=== PATIENT | male | born 2005 | race Caucasian/White ===

== ENCOUNTER 2024-07-09 15:54 | Inpatient (IN) | payer OTHER ==
[~2024-07-09] VITALS: Ht 172.7 cm; Wt 89.0 kg
[2024-07-09 16:49] LABS: HEMATOCRIT 48.5 % (42.0-52.0); HEMOGLOBIN 16.5 g/dl (13.5-17.5); MEAN CORPUSCULAR HEMOGLOBIN 28.2 pg (27.0-33.0); MEAN CORPUSCULAR VOLUME 82.9 fl (80.0-96.0); PLATELET COUNT, AUTOMATED 269 10^3/uL (150-450); RED BLOOD COUNT 5.85 10^6/uL (4.30-6.10); WHITE BLOOD COUNT 9.8 10^3/uL (4.0-10.0)
[2024-07-09 17:12] LABS: AMPHETAMINES LEVEL URINE NEGATIVE (NEGATIVE); BARBITURATES URINE NEGATIVE (NEGATIVE); BENZODIAZEPINES URINE NEGATIVE (NEGATIVE); CANNABINOIDS URINE NEGATIVE (NEGATIVE); COCAINE METABOLITE URINE NEGATIVE (NEGATIVE); METHADONE URINE NEGATIVE (NEGATIVE); OPIATES URINE NEGATIVE (NEGATIVE); PHENCYCLIDINE URINE NEGATIVE (NEGATIVE)
[2024-07-09 17:15] LABS: SALICYLATE LEVEL < 3.0 MG/DL (<30)
[2024-07-09 17:18] LABS: THYROID STIMULATING HORMONE 1.698 uIU/ML (0.55-4.78)
[2024-07-09 17:21] LABS: ETHYL ALCOHOL (ETHANOL) 0.005 % (0.000-0.010)
[2024-07-09 17:22] LABS: ALBUMIN 4.9 G/DL (3.2-5.2); ALKALINE PHOSPHATASE 96 U/L (40-129); ALT/SGPT 223 U/L (7.0-40); AST/SGOT 75 U/L (<34); BILIRUBIN,DIRECT 0.4 MG/DL (<0.4); BILIRUBIN,TOTAL 1.1 MG/DL (0.3-1.2); BLOOD UREA NITROGEN 13 MG/DL (9-23); CALCIUM LEVEL 10.2 MG/DL (8.5-10.1); CARBON DIOXIDE LEVEL 26 MMOL/L (20-31); CHLORIDE LEVEL 103 MMOL/L (98-107); CREATININE FOR GFR 0.86 MG/DL (0.70-1.30); GLOMERULAR FILTRATION RATE > 90.0 (>60); GLUCOSE, FASTING 89 MG/DL (60-100); POTASSIUM SERUM 4.6 MMOL/L (3.5-5.1); SODIUM LEVEL 140 MMOL/L (136-145); TOTAL PROTEIN 7.7 G/DL (5.7-8.2)
[2024-07-09] MEDS ORDERED: ACETAMINOPHEN 325 MG TAB PO PRN (19:00)
[2024-07-09] MEDS ORDERED: MOM 30ML SUSPENSION UDC PO PRN (19:00)
[2024-07-09] MEDS ORDERED: HOME MED LIST COMPLETE! XX SCH (19:00)
[2024-07-09] MEDS ORDERED: MAALOX 30 ML SUSP *UDC PO PRN (19:00)
[2024-07-09 22:15] VITALS: BP 124/80; TEMP 97.5; O2SAT 99
[2024-07-10 06:22] VITALS: BP 142/72; TEMP 97.6; O2SAT 99
[2024-07-10 16:37] VITALS: BP 129/80; TEMP 98.3; O2SAT 97
[2024-07-10 18:28] LABS: HEPATITIS B SURFACE ANTIGEN NEGATIVE (NEGATIVE)
[2024-07-10 18:48] LABS: HEPATITIS B CORE ANTIBODY IGM NEGATIVE (NEGATIVE); HEPATITIS C VIRUS ABY INDEX 0.03 INDEX (<0.8)
[2024-07-10 19:02] LABS: CPK CREATINE PHOSPHOKINASE 85 U/L (46-171)
[2024-07-11 06:31] VITALS: BP 129/75; TEMP 97.8; O2SAT 98
[2024-07-11 08:23] LABS: ALBUMIN 4.3 G/DL (3.2-5.2); BILIRUBIN,DIRECT 0.4 MG/DL (<0.4); BILIRUBIN,TOTAL 1.1 MG/DL (0.3-1.2); TOTAL PROTEIN 7.1 G/DL (5.7-8.2)
[2024-07-11 15:09] VITALS: BP 134/79; TEMP 98.2; O2SAT 98
[2024-07-12 06:50] VITALS: BP 135/81; TEMP 97.8; O2SAT 100
[2024-07-12] MEDS: ESCITALOPRAM OXALATE 5MG TABLET (LEXAPRO) PO SCH (12:35)
[2024-07-12 15:48] VITALS: BP 128/79; TEMP 97.8; O2SAT 100
[2024-07-13 06:52] VITALS: BP 135/78; TEMP 97.5; O2SAT 100
[2024-07-13 16:12] VITALS: BP 137/80; TEMP 97.7; O2SAT 98
[2024-07-14 06:42] VITALS: BP 126/68; TEMP 98.1; O2SAT 98
[2024-07-14] MEDS: ESCITALOPRAM OXALATE 10 MG TAB (LEXAPRO) PO SCH (09:43)
[2024-07-14 15:02] VITALS: BP 134/75; TEMP 98.2; O2SAT 98
[2024-07-14] MEDS: traZODone 50 MG TAB PO PRN (23:05)
[2024-07-15 06:05] VITALS: BP 125/70; TEMP 97.7; O2SAT 98
[2024-07-15] MEDS: IBUPROFEN 400MG TAB PO PRN (12:47)
[2024-07-15 14:57] VITALS: BP 138/85; TEMP 98.4; O2SAT 99
[2024-07-15] MEDS: diphenhydrAMINE 25MG CAP PO PRN (21:03)
[2024-07-16 06:44] VITALS: BP 124/78; TEMP 97; O2SAT 99
[2024-07-16 15:56] VITALS: BP 143/79; TEMP 97.5; O2SAT 100
[2024-07-17 06:44] VITALS: BP 112/63; TEMP 97.5; O2SAT 98
[2024-07-17] MEDS ORDERED: TRAZ-252 PO (10:58)
[2024-07-17] MEDS ORDERED: HYDR-4570 PO (10:58)
[2024-07-17] MEDS ORDERED: LEXA1TAB2 PO (10:58)
[2024-07-17 15:58] VITALS: BP 164/84; TEMP 98.7; O2SAT 98
[2024-07-18 06:42] VITALS: BP 129/58; TEMP 97.7; O2SAT 99
[2024-07-18] MEDS: ESCITALOPRAM OXALATE 10 MG TAB (LEXAPRO) PO SCH (08:08)
== END 2024-07-18 12:58 | disposition home or self-care (01) | DRG 885 ==
LOC: M ED 15:54 → M ED INP 18:58 → M PSY 21:01
PROVIDERS: ADMIT Psychiatry & Neurology Neurology; ATTEND Psychiatry & Neurology Neurology
DX: F33.1 Major depressive disorder, recurrent, moderate (principal); F60.9 Personality disorder, unspecified; F43.10 Post-traumatic stress disorder, unspecified; R74.01 Elevation of levels of liver transaminase levels; H93.11 Tinnitus, right ear; Z62.811 Personal history of psychological abuse in childhood; Z56.6 Other physical and mental strain related to work

== ENCOUNTER 2024-11-25 14:12 | Inpatient (IN) | payer OTHER ==
[~2024-11-25] VITALS: Ht 172.7 cm; Wt 86.4 kg
[~2024-11-25 14:12] MED LIST: BUPR150T12 PO; HYDR-3363 PO; HYDR-3364 PO; LEXA1TAB2 PO; PROP80CA PO; TRAZ-252 PO
[2024-11-25 15:09] LABS: PLATELET COUNT, AUTOMATED 280 10^3/uL (150-450)
[2024-11-25 15:42] LABS: ETHYL ALCOHOL (ETHANOL) < 0.003 % (0.000-0.010)
[2024-11-25 15:44] LABS: ALT/SGPT 180 U/L (7.0-40); AST/SGOT 70 U/L (<34); CALCIUM LEVEL 10.8 MG/DL (8.5-10.1); CARBON DIOXIDE LEVEL 28 MMOL/L (20-31); CHLORIDE LEVEL 102 MMOL/L (98-107); CREATININE FOR GFR 1.00 MG/DL (0.70-1.30); GLOMERULAR FILTRATION RATE > 90.0 (>60); POTASSIUM SERUM 4.7 MMOL/L (3.5-5.1); SALICYLATE LEVEL < 3.0 MG/DL (<30); SODIUM LEVEL 141 MMOL/L (136-145)
[2024-11-25] MEDS ORDERED: LEXA1TAB PO (16:09)
[2024-11-25] MEDS ORDERED: HOME MED LIST COMPLETE! XX SCH (16:10)
[2024-11-25 16:56] LABS: AMPHETAMINES LEVEL URINE NEGATIVE (NEGATIVE); BARBITURATES URINE NEGATIVE (NEGATIVE); BENZODIAZEPINES URINE NEGATIVE (NEGATIVE); CANNABINOIDS URINE NEGATIVE (NEGATIVE); COCAINE METABOLITE URINE NEGATIVE (NEGATIVE); METHADONE URINE NEGATIVE (NEGATIVE); OPIATES URINE NEGATIVE (NEGATIVE); PHENCYCLIDINE URINE NEGATIVE (NEGATIVE)
[2024-11-25] MEDS ORDERED: MAALOX 30 ML SUSP *UDC PO PRN (17:50)
[2024-11-25] MEDS ORDERED: IBUPROFEN 400 MG TAB PO PRN (17:50)
[2024-11-25] MEDS ORDERED: MOM 30 ML SUSPENSION UDC PO PRN (17:50)
[2024-11-25 19:55] VITALS: BP 146/77; TEMP 98.3; O2SAT 100
[2024-11-25 20:07] VITALS: BP 146/77; TEMP 98.3; O2SAT 100
[2024-11-25] MEDS: traZODone 50 MG TAB PO PRN (21:03)
[2024-11-26 06:54] VITALS: BP 129/66; TEMP 98.5; O2SAT 98
[2024-11-26] MEDS: buPROPion **XL** 150 MG TABLET PO SCH (08:39)
[2024-11-26] MEDS: ESCITALOPRAM OXALATE 10 MG TABLET PO SCH (08:39)
[2024-11-26 16:23] VITALS: BP 130/67; TEMP 99; O2SAT 98
[2024-11-27 06:25] VITALS: BP 105/57; TEMP 97.6; O2SAT 98
[2024-11-27 15:28] VITALS: BP 111/52; TEMP 98.6; O2SAT 97
[2024-11-27] MEDS: ACETAMINOPHEN 325 MG TAB PO PRN (17:49)
[2024-11-28 06:25] VITALS: BP 121/58; TEMP 97.6; O2SAT 98
[2024-11-28] MEDS ORDERED: BUPR150T12 PO (08:50)
[2024-11-28] MEDS ORDERED: LEXA1TAB PO (08:50)
== END 2024-11-28 10:24 | disposition home or self-care (01) | DRG 885 ==
LOC: M ED 14:12 → M ED INP 17:46 → M PSY 20:00
PROVIDERS: ADMIT Psychiatry & Neurology Neurology; ATTEND Psychiatry & Neurology Psychiatry
DX: F32.1 Major depressive disorder, single episode, moderate (principal); F43.10 Post-traumatic stress disorder, unspecified; F41.1 Generalized anxiety disorder; Z63.5 Disruption of family by separation and divorce; Z79.899 Other long term (current) drug therapy; M54.6 Pain in thoracic spine; G89.29 Other chronic pain; Z56.4 Discord with boss and workmates